=== PATIENT | female | born 1975 | race Hispanic/Latino ===

== ENCOUNTER 2020-10-24 13:11 | Emergency (ER) | payer OTHER ==
[~2020-10-24] VITALS: Ht 160 cm; Wt 108.0 kg
[2020-10-24] MEDS ORDERED: PENICILLIN G BENZATHINE LA 1.2 MU TBX IM STA (14:03)
[2020-10-24] MEDS ORDERED: LIDOCAINE VISC 2% SOLN 15 ML UDC ONE (14:10)
[2020-10-24] MEDS ORDERED: PREDNISONE 20 MG TAB ONE (14:10)
[2020-10-24] MEDS ORDERED: AZITHROMYCIN500 MG PO (14:17)
[2020-10-24] MEDS ORDERED: ALBUTEROL2.5 MG/3 M NEB (14:17)
[2020-10-24] MEDS ORDERED: TAMIFLU75 MG PO (14:17)
[2020-10-24] MEDS ORDERED: PREDNISONE20 MG PO (14:17)
[2020-10-24] MEDS ORDERED: PROAIR HFA INH8.5 GM PO (14:17)
[2020-10-24] MEDS ORDERED: LIDOCAINE VISC 2% SOLN 15 ML UDC PO ONE (14:30)
[2020-10-24] MEDS ORDERED: PREDNISONE 20 MG TAB PO ONE (14:30)
== END 2020-10-24 14:45 | disposition home or self-care (01) ==
LOC: FSED 13:35
DX: J10.1 Influenza due to other identified influenza virus with other respiratory manifestations (principal); R50.9 Fever, unspecified; I10 Essential (primary) hypertension; J45.909 Unspecified asthma, uncomplicated
CPT/HCPCS: 83518; 87400; 96372; 99283; J0561; J7512

== ENCOUNTER 2021-04-24 13:17 | Observation (INO) | payer OTHER ==
[~2021-04-24] VITALS: Ht 160 cm; Wt 100.7 kg
[~2021-04-24 13:17] MED LIST: ALBUTEROL2.5 MG/3 M NEB; AZITHROMYCIN500 MG PO; PREDNISONE20 MG PO; PROAIR HFA INH8.5 GM PO; TAMIFLU75 MG PO
[2021-04-24] MEDS ORDERED: KETOROLAC TROMETHAMINE 30 MG/ML VIAL IV STA (13:38)
[2021-04-24] MEDS ORDERED: KETOROLAC TROMETHAMINE 30 MG/ML VIAL ONE (14:13)
[2021-04-24] MEDS ORDERED: ONDANSETRON HCL INJ 2MG/ML 2ML 2 MG/ML VIAL IV PRN (14:45)
[2021-04-24] MEDS ORDERED: ASPIRIN 81 MG CHEW TAB PO ONE (14:45)
[2021-04-24] MEDS: NEOMYCIN/POLYMYX/HYDROC (OTIC) 10 ML BTL OT SCH ×2 (15:00→20:32)
[2021-04-24] MEDS ORDERED: ASPIRIN 325 MG TAB ONE (15:17)
[2021-04-24] MEDS ORDERED: ASPIRIN 325 MG TAB PO ONE (15:30)
[2021-04-24] MEDS ORDERED: ZYRTEC10 M3 PEG (16:35)
[2021-04-24] MEDS ORDERED: LISINOPRIL10 MG PO (16:35)
[2021-04-24] MEDS ORDERED: [UNRECOGNIZED DRUG - OTHER] PO (16:35)
[2021-04-24] MEDS ORDERED: EPIPEN JR0.15 MG/01 IJ (16:36)
[2021-04-24 16:56] VITALS: BP 122/83
[2021-04-24] MEDS ORDERED: CEFDINIR 300 MG CAP PO SCH (17:00)
[2021-04-24 17:04] VITALS: BP 122/83
[2021-04-24 17:39] LABS: CREATINE KINASE MB 1.7 ng/mL (0-5.0)
[2021-04-24 20:00] VITALS: BP 113/77
[2021-04-24] MEDS ORDERED: ALBUTEROL SULF 0.083% NEB SOLN 3 ML NEB NEB PRN (20:30)
[2021-04-24] MEDS ORDERED: ALBUTEROL SULFATE HFA 8GM INHALATION AEROSOL INH PRN (20:30)
[2021-04-24] MEDS: IBUPROFEN 400 MG TAB PO PRN (20:39)
[2021-04-24] MEDS: CEFDINIR 300 MG CAP PO SCH (20:39)
[2021-04-24 21:00] VITALS: BP 113/77
[2021-04-24] MEDS: LISINOPRIL 10 MG TAB PO SCH (21:00)
[2021-04-25] VITALS (7 sets, daily range): BP systolic 94–138; BP diastolic 57–81
[2021-04-25 00:25] LABS: CREATINE KINASE MB 1.4 ng/mL (0-5.0)
[2021-04-25] MEDS ORDERED: ACETAMINOPHEN 325 MG TAB PO PRN (06:15)
[2021-04-25] MEDS ORDERED: DOCUSATE SODIUM 100 MG CAP PO PRN (06:15)
[2021-04-25] MEDS ORDERED: ZOLPIDEM TARTRATE 5 MG TAB PO PRN (06:15)
[2021-04-25] MEDS ORDERED: ONDANSETRON HCL INJ 2MG/ML 2ML 2 MG/ML VIAL IV PRN (06:15)
[2021-04-25] MEDS: FAMOTIDINE 20 MG TAB PO SCH ×2 (07:30→16:10)
[2021-04-25 08:22] LABS: CHOL/HDL RATIO 27.7 (3.0-3.6); CHOLESTEROL 360 MD/DL (0-199); HDL CHOLESTEROL 13 MG/DL (40-60); TRIGLYCERIDES 468 MG/DL (0-149)
[2021-04-25 08:36] LABS: CREATINE KINASE MB 1.4 ng/mL (0-5.0)
[2021-04-25] MEDS: CEFDINIR 300 MG CAP PO SCH ×3 (09:00→21:11)
[2021-04-25] MEDS: ASPIRIN 325 MG TAB EC PO SCH (09:00)
[2021-04-25] MEDS: LORATADINE 10 MG TAB PO SCH (09:00)
[2021-04-25] MEDS ORDERED: REGADENOSON 0.4 MG/5 ML SYR IV ONE (11:21)
[2021-04-25] MEDS: NEOMYCIN/POLYMYX/HYDROC (OTIC) 10 ML BTL OT SCH ×3 (14:10→21:11)
[2021-04-25] MEDS: IBUPROFEN 400 MG TAB PO PRN (14:28)
[2021-04-25] MEDS: LISINOPRIL 10 MG TAB PO SCH (16:08)
[2021-04-25] MEDS ORDERED: ENOXAPARIN SOD INJ 40 MG/0.4 ML SYR SC SCH (17:00)
[2021-04-26] VITALS: BP 118/82
[2021-04-26 04:10] VITALS: BP 106/75
[2021-04-26 07:32] VITALS: BP 103/58
[2021-04-26 07:53] VITALS: BP 103/58
[2021-04-26] MEDS: CEFDINIR 300 MG CAP PO SCH (08:53)
[2021-04-26] MEDS: NEOMYCIN/POLYMYX/HYDROC (OTIC) 10 ML BTL OT SCH (08:53)
[2021-04-26] MEDS: ASPIRIN 325 MG TAB EC PO SCH (08:53)
[2021-04-26] MEDS: LORATADINE 10 MG TAB PO SCH (08:53)
[2021-04-26] MEDS: FAMOTIDINE 20 MG TAB PO SCH (08:53)
[2021-04-26 10:27] LABS: BASOPHILS # (AUTO) 0.1 (0.0-0.1); BASOPHILS % 0.5 % (0.0-1.0); EOSINOPHILS # (AUTO) 0.2 (0.0-0.4); EOSINOPHILS % 1.6 % (0.0-6.0); HEMATOCRIT 42.6 % (34.2-44.1); HEMOGLOBIN 13.8 g/dL (12.0-16.0); LYMPHOCYTES # (AUTO) 2.8 (1.0-3.2); LYMPHOCYTES % 30.6 % (18.0-39.1); MEAN CORPUSCULAR HEMOGLOBIN 29.7 pg (28-32); MEAN CORPUSCULAR HGB CONC 32.4 g/dL (31-35); MEAN CORPUSCULAR VOLUME 91.8 fL (81-99); MONOCYTES # (AUTO) 0.7 (0.2-0.8); MONOCYTES % 7.4 % (4.4-11.3); NEUTROPHILS # (AUTO) 5.4 (2.1-6.9); NEUTROPHILS % 58.8 % (38.7-80.0); PLATELET COUNT 218 x10e3/uL (140-360); RED BLOOD COUNT 4.64 x10e6/uL (3.6-5.1); RED CELL DISTRIBUTION WIDTH 12.7 % (11.7-14.4)
[2021-04-26 10:42] LABS: CALCIUM 8.9 mg/dL (8.4-10.2); CREATININE, SERUM 0.7 mg/dL (0.57-1.11)
[2021-04-26 10:48] LABS: CHOL/HDL RATIO 51.7 (3.0-3.6); CHOLESTEROL 362 MD/DL (0-199); HDL CHOLESTEROL 7 MG/DL (40-60); TRIGLYCERIDES 497 MG/DL (0-149)
[2021-04-26 11:42] VITALS: BP 108/70
[2021-04-26] MEDS: IBUPROFEN 400 MG TAB PO PRN (13:55)
[2021-04-26] MEDS ORDERED: ASPIRIN EC81 MG PO (15:11)
[2021-04-26] MEDS ORDERED: FAMOTIDINE20 MG PO (15:11)
[2021-04-26] MEDS ORDERED: FENOFIBRATE145 MG PO (15:11)
[2021-04-26] MEDS ORDERED: NEOMYCIN-POLYMY10 ML OT (15:41)
[2021-04-26] MEDS ORDERED: Cefdinir PO (15:41)
[2021-04-26 16:00] VITALS: BP 106/64
[2021-04-27] MEDS ORDERED: FENOFIBRATE 145 MG TAB PO SCH (09:00)
== END 2021-04-26 17:25 | disposition home or self-care (01) ==
LOC: FSED 13:40 → ERHOLD 14:40 → MED/SURG 16:11 → MED/SURG3 04-25 16:24
PROVIDERS: ADMIT Internal Medicine; ATTEND Internal Medicine
DX: R07.89 Other chest pain (principal); E78.5 Hyperlipidemia, unspecified; I10 Essential (primary) hypertension; E66.8 Other obesity; Z68.39 Body mass index [BMI] 39.0-39.9, adult; J30.9 Allergic rhinitis, unspecified
CPT/HCPCS: 36415 ×3; 70450; 71045; 78452; 80048; 80053; 80061 ×2; 82550 ×2; 82553 ×2; 83036 ×2; 84484 ×2; 85025 ×2; 93005; 93017; 99284; A9502; G0378 ×3; J1885; J2785; J1650

== ENCOUNTER 2022-07-08 21:54 | Emergency (ER) | payer OTHER ==
[~2022-07-08] VITALS: Ht 160 cm; Wt 105.7 kg
[~2022-07-08 21:54] MED LIST changes: +ASPIRIN EC81 MG PO; +Cefdinir PO; +EPIPEN JR0.15 MG/01 IJ; +FAMOTIDINE20 MG PO; +FENOFIBRATE145 MG PO; +IBUPROFEN600 MG PO; +LISINOPRIL10 MG PO; +NEOMYCIN-POLYMY10 ML OT; +ZYRTEC10 M3 PEG; +[UNRECOGNIZED DRUG - OTHER] PO
[2022-07-08 22:19] LABS: BASOPHILS % 0.3 % (0.0-1.0); EOSINOPHILS # (AUTO) 0.3 (0.0-0.4); EOSINOPHILS % 3.1 % (0.0-6.0); HEMATOCRIT 43.3 % (34.2-44.1); HEMOGLOBIN 13.5 g/dL (12.0-16.0); LYMPHOCYTES # (AUTO) 3.6 (1.0-3.2); LYMPHOCYTES % 35.4 % (18.0-39.1); MEAN CORPUSCULAR HEMOGLOBIN 29.4 pg (28-32); MEAN CORPUSCULAR HGB CONC 31.2 g/dL (31-35); MEAN CORPUSCULAR VOLUME 94.3 fL (81-99); MONOCYTES # (AUTO) 0.8 (0.2-0.8); MONOCYTES % 7.8 % (4.4-11.3); NEUTROPHILS # (AUTO) 5.4 (2.1-6.9); NEUTROPHILS % 53.1 % (38.7-80.0); PLATELET COUNT 292 x10e3/uL (140-360); RED BLOOD COUNT 4.59 x10e6/uL (3.6-5.1); RED CELL DISTRIBUTION WIDTH 12.4 % (11.7-14.4)
[2022-07-08 22:29] LABS: CLARITY,URINE CLEAR (CLEAR); COLOR,URINE YELLOW (YELLOW); KETONES,URINE NEGATIVE (NEGATIVE); LEUKOCYTE ESTERASE ,URINE NEGATIVE (NEGATIVE); NITRITE,URINE NEGATIVE (NEGATIVE); PROTEIN,URINE DIPSTICK NEGATIVE (NEGATIVE); URINE UROBILINOGEN 0.2 mg/dL (0.2 - 1)
[2022-07-08 22:30] LABS: BACTERIA,URINE FEW /HPF; EPITHELIAL CELLS,URINE FEW /LPF; WBC,URINE (MAN) 0-5 /HPF (0-5)
[2022-07-08 22:33] LABS: ALANINE AMINOTRANSFERASE 22 IU/L (0-55); ALBUMIN 3.7 g/dL (3.5-5.0); ALKALINE PHOSPHATASE 88 IU/L (40-150); ANION GAP 12.6 mmol/L (8-16); BLOOD UREA NITROGEN 12 mg/dL (7-26); BUN/CREATININE RATIO 16 (6-25); CALCIUM 9.2 mg/dL (8.4-10.2); CARBON DIOXIDE 24 mmol/L (22-29); CHLORIDE 107 mmol/L (98-107); CREATINE KINASE 178 IU/L (29-168); CREATININE, SERUM 0.75 mg/dL (0.57-1.11); GLUCOSE 109 mg/dL (74-118); POTASSIUM 3.6 mmol/L (3.5-5.1); SODIUM 140 mmol/L (136-145)
[2022-07-08] MEDS ORDERED: ACETAMINOPHEN 325 MG TAB PO ONE (23:45)
[2022-07-08] MEDS ORDERED: ACETAMINOPHEN 325 MG TAB ONE (23:52)
[2022-07-09 00:35] LABS: CREATINE KINASE 162 IU/L (29-168)
[2022-07-09 00:50] VITALS: BP 108/73
== END 2022-07-09 01:24 | disposition home or self-care (01) ==
LOC: ER 22:00
DX: R07.9 Chest pain, unspecified (principal); I10 Essential (primary) hypertension; J45.909 Unspecified asthma, uncomplicated; F41.0 Panic disorder [episodic paroxysmal anxiety]
CPT/HCPCS: 36415; 71045; 80053; 81001; 82550; 82553; 84484; 85025; 93005; 99284

== ENCOUNTER 2025-05-22 10:48 | Inpatient (IN) | payer BC, OTHER ==
[~2025-05-22] VITALS: Ht 160 cm; Wt 123.6 kg
[~2025-05-22 10:48] MED LIST changes: +AZITHROMYCIN250 MG PO; +CORICIDIN HBP1 EAC3 PO; +PROVENTIL HFA6.7 GM INH; -ZYRTEC10 M3 PEG; +ZYRTEC10 M3 PO
[2025-05-22] MEDS: SODIUM CHLORIDE 0.9% 1000ML 1,000 ML IV ONE ×2 (11:44→17:00)
[2025-05-22] MEDS: ONDANSETRON HCL INJ 2MG/ML 2ML 2 MG/ML VIAL IV STA (11:44)
[2025-05-22] MEDS: KETOROLAC TROMETHAMINE 30 MG/ML VIAL IV STA (11:44)
[2025-05-22] MEDS ORDERED: IOPAMIDOL 370 MG/ML 100 ML INFUS..BTL INJ ONE (11:53)
[2025-05-22] MEDS ORDERED: CEFTRIAXONE 1 GM VIAL ONE (12:38)
[2025-05-22] MEDS ORDERED: ACETAMINOPHEN 325 MG TAB ONE (12:38)
[2025-05-22] MEDS ORDERED: Morphine 2mg Syringe 2 MG/ML SYR IV PRN (13:30)
[2025-05-22] MEDS: ACETAMINOPHEN 325 MG TAB PO ONE (13:31)
[2025-05-22 14:53] VITALS: PULSE 99; RESP 18; TEMP 99.7
[2025-05-22] MEDS ORDERED: FLUTICASONE PRO16 GM NS (15:50)
[2025-05-22] MEDS ORDERED: BIOTIN10 MG PO (15:53)
[2025-05-22] MEDS ORDERED: MAGNESIUM OXID400 MG PO (15:53)
[2025-05-22 15:54] VITALS: BP 98/51; PULSE 97; RESP 17; TEMP 98.4; O2SAT 97
[2025-05-22 16:00] VITALS: BP 98/51; PULSE 96; RESP 17; TEMP 98; O2SAT 97
[2025-05-22] MEDS ORDERED: ALBUTEROL 90 MCG/ACT INHALER INH PRN ×2 (17:30)
[2025-05-22] MEDS ORDERED: FLUTICASONE PROPIONATE NASAL SPRAY NS PRN (17:30)
[2025-05-22] MEDS ORDERED: ALBUTEROL SULF 0.083% NEB SOLN 3 ML NEB NEB PRN (17:30)
[2025-05-22] MEDS ORDERED: DEXTROSE 50% SYRINGE 50 ML IV PRN (17:30)
[2025-05-22] MEDS: SODIUM CHLORIDE 0.9% 1000ML 1,000 ML IV SCH (17:43)
[2025-05-22] MEDS: ACETAMINOPHEN 325 MG TAB PO PRN (17:47)
[2025-05-22 20:00] VITALS: BP 107/88; PULSE 98; RESP 18; TEMP 98.5; O2SAT 100
[2025-05-22 21:00] VITALS: BP 107/88; PULSE 98; RESP 18; TEMP 98.5; O2SAT 100
[2025-05-22] MEDS: INSULIN LISPRO 100 UNIT/1 ML 3ML VIAL SQ SCH (21:37)
[2025-05-23] VITALS (9 sets, daily range): BP systolic 108–132; BP diastolic 65–79; PULSE 82–96; RESP 18–20; TEMP 98–98.7; O2SAT 96–99
[2025-05-23 06:26] LABS: BASOPHILS % 0.3 % (0.0-1.0); EOSINOPHILS % 2.9 % (0.0-6.0); LYMPHOCYTES % 20.2 % (18.0-39.1); MONOCYTES % 8.9 % (4.4-11.3); NEUTROPHILS % 67.3 % (38.7-80.0); RED CELL DISTRIBUTION WIDTH 13.1 % (11.7-14.4)
[2025-05-23] MEDS: LISINOPRIL 10 MG TAB PO SCH (08:47)
[2025-05-23] MEDS: LORATADINE 10 MG TAB PO SCH (08:47)
[2025-05-23] MEDS: FAMOTIDINE 20 MG TAB PO SCH (08:47)
[2025-05-23] MEDS: ONDANSETRON HCL INJ 2MG/ML 2ML 2 MG/ML VIAL IV PRN (14:47)
[2025-05-24] VITALS (10 sets, daily range): BP systolic 105–128; BP diastolic 64–84; PULSE 65–86; RESP 18–20; TEMP 97.4–98.8; O2SAT 96–100
[2025-05-24] MEDS: METOCLOPRAMIDE HCL 10 MG/2ML VIAL IV SCH (05:46)
[2025-05-24 06:06] LABS: BASOPHILS % 0.2 % (0.0-1.0); EOSINOPHILS % 3.0 % (0.0-6.0); LYMPHOCYTES % 28.3 % (18.0-39.1); MONOCYTES % 8.8 % (4.4-11.3); NEUTROPHILS % 59.3 % (38.7-80.0); RED CELL DISTRIBUTION WIDTH 12.8 % (11.7-14.4)
[2025-05-24 06:57] LABS: EST GLOMERULAR FILTRATION RATE 107.0 ML/MIN (>=60)
[2025-05-24] MEDS: SODIUM CHLORIDE 0.9% 1000ML 1,000 ML IV SCH (17:46)
[2025-05-24 23:42] LABS: % IRON SATURATION 21 % (15-50)
[2025-05-25] VITALS (11 sets, daily range): BP systolic 123–143; BP diastolic 73–92; PULSE 75–88; RESP 17–20; TEMP 97.6–98.8; O2SAT 95–100
[2025-05-25 06:46] LABS: BASOPHILS % 0.5 % (0.0-1.0); EOSINOPHILS % 3.5 % (0.0-6.0); LYMPHOCYTES % 28.6 % (18.0-39.1); MONOCYTES % 6.6 % (4.4-11.3); NEUTROPHILS % 60.6 % (38.7-80.0); RED CELL DISTRIBUTION WIDTH 12.6 % (11.7-14.4)
[2025-05-25 07:23] LABS: EST GLOMERULAR FILTRATION RATE 108.0 ML/MIN (>=60)
[2025-05-25] MEDS: IRON SUCROSE 100 MG in SODIUM CHLORIDE 0.9% 100 ML IV SCH (08:33)
[2025-05-25] MEDS: CYANOCOBALAMIN INJ 1,000 MCG/ML VIAL IM ONE (22:40)
[2025-05-26 03:27] VITALS: BP 134/79; PULSE 77; RESP 18; TEMP 97.5; O2SAT 97
[2025-05-26 06:29] VITALS: PULSE 74; RESP 20; O2SAT 95
[2025-05-26 08:30] VITALS: BP 134/79; PULSE 74; RESP 20; TEMP 97.5; O2SAT 95
[2025-05-26] MEDS: CYANOCOBALAMIN INJ 1,000 MCG/ML VIAL IM SCH (08:53)
[2025-05-26 10:29] VITALS: BP 120/77; PULSE 76; RESP 20; TEMP 98.8; O2SAT 98
[2025-05-26] MEDS ORDERED: LEVOFLOXACIN250 MG PO (14:00)
[2025-05-26] MEDS ORDERED: METRONIDAZOLE500 MG PO (14:01)
[2025-05-26 14:47] VITALS: BP 138/91; PULSE 76; RESP 18; TEMP 98.5; O2SAT 100
[2025-05-26] MEDS ORDERED: [UNRECOGNIZED DRUG - OTHER] PO (15:02)
== END 2025-05-26 15:15 | disposition home or self-care (01) | DRG 392 ==
LOC: FSED 10:57 → ERHOLD 13:22 → MED/SURG3 15:25
PROVIDERS: ADMIT Internal Medicine; ATTEND Internal Medicine
DX: K57.32 Diverticulitis of large intestine without perforation or abscess without bleeding (principal); E66.01 Morbid (severe) obesity due to excess calories; Z68.42 Body mass index [BMI] 45.0-49.9, adult; B96.1 Klebsiella pneumoniae [K. pneumoniae] as the cause of diseases classified elsewhere; E11.65 Type 2 diabetes mellitus with hyperglycemia; I10 Essential (primary) hypertension; K21.9 Gastro-esophageal reflux disease without esophagitis; K76.0 Fatty (change of) liver, not elsewhere classified; D50.9 Iron deficiency anemia, unspecified; J45.909 Unspecified asthma, uncomplicated; F41.9 Anxiety disorder, unspecified; Z11.52 Encounter for screening for COVID-19; Z79.52 Long term (current) use of systemic steroids; Z79.82 Long term (current) use of aspirin; Z88.7 Allergy status to serum and vaccine
CPT/HCPCS: 0223U; 36415; 74177; 80048; 80053; 81003; 82607; 82948; 83036; 83540; 83735; 84466; 85025; 85045; 87040; 87086; 87186; 87400; 94799; 96372; 96374; 96375; 99284; J0696; J1756; J1885; J2405; J2470; J2543; J2765; J3420; J7030; J7050; Q9967